=== PATIENT | female | born 1965 | race Caucasian/White ===

== ENCOUNTER 2019-07-27 09:28 | Day surgery (SDC) | payer BC ==
[~2019-07-27] VITALS: Ht 170.2 cm; Wt 124.7 kg
[~2019-07-27 09:28] MED LIST: ACETAMINOPHEN 1000MG 100ML IV BTL (OFIRMEV) (J0131 PER 10MG) As Ordered ONE; LIDOCAINE 2% INJ 100 MG/5 ML SDV (FOR ANES.) As Ordered ONE; LISI20TA20 PO; LR 1,000 ML IV ONE; ONDANSETRON 4MG/2ML VIAL (J2405) As Ordered ONE; PARO40TA2 PO; PROPOFOL 200 MG/20 ML VIAL As Ordered ONE; SIMV20TA22 PO; ceFAZolin SOD 2 GM in IV 1 EA IV ONE; dexameTHASONE 4 MG/ML 1ML VIAL (J1100) As Ordered ONE
[2019-07-27] MEDS ORDERED: BUPIVACAINE/EPIN 0.25% 30 ML VIAL As Ordered ONE (11:53)
[2019-07-27] MEDS ORDERED: MIDAZOLAM INJ 2 MG/2 ML VIAL (J2250) As Ordered ONE (12:28)
[2019-07-27] MEDS ORDERED: fentaNYL 100 MCG/2 ML INJECTION (J3010) As Ordered ONE (12:28)
[2019-07-27] MEDS ORDERED: PROPOFOL 500 MG/50 ML VIAL As Ordered ONE (13:00)
[2019-07-27] MEDS ORDERED: ROCURONIUM BROMIDE 50 MG/5 ML VIAL As Ordered ONE (13:25)
[2019-07-27] MEDS ORDERED: ALBUTEROL 6.7GM INHALER **FOR ANES. CART/OMNICELL ONLY As Ordered ONE (13:37)
[2019-07-27] MEDS ORDERED: fentaNYL 100 MCG/2 ML INJECTION (J3010) IV PRN (14:30)
[2019-07-27] MEDS ORDERED: LR 1,000 ML IV SCH (14:30)
[2019-07-27] MEDS ORDERED: ONDANSETRON 4MG/2ML VIAL (J2405) IV PRN (14:30)
[2019-07-27] MEDS ORDERED: METOCLOPRAMIDE INJ 10MG/2ML VIAL (J2765) IV PRN (14:30)
[2019-07-27] MEDS ORDERED: PERCOCET 5MG/325MG TAB PO PRN (14:30)
[2019-07-27] MEDS ORDERED: oxyCODONE 5MG TAB PO PRN ×2 (15:30)
[2019-07-27 16:45] VITALS: BP 147/84
--- NOTE | 2019-07-28 00:32 | RO ---
DATE OF PROCEDURE: 07/27/2019 PREPROCEDURE DIAGNOSIS: Left knee medial meniscal tear. POSTPROCEDURE DIAGNOSIS: Left knee medial meniscal tear. PROCEDURE: Left knee medial partial meniscectomy with extensive synovectomy. SURGEON: Gary Miller MD FILTER OPERATOR: None. ANESTHESIA: PREOPERATIVE ANTIBIOTICS: 2 grams of Ancef COMPLICATIONS: None. TOURNIQUET TIME: 20 minutes. INDICATIONS: A 64-year-old female who had been failing nonoperative treatment for her meniscal tear. We discussed how she also has concomitant osteoarthritis and that that will not improve with the procedure, but her mechanical symptoms from the meniscal tear will. Patient expressed understanding and agreement of the plan along with the risks of infection, damage to surrounding soft tissues, incomplete relief, and she wished to proceed. DESCRIPTION OF PROCEDURE: The patient was brought to the operating room in the supine position, underwent spinal anesthesia; unfortunately, had to be converted over to general anesthesia due to difficulty with respirations during the procedure. But then the left knee was prepped and draped in the usual fashion. We had a time-out to confirm site, side and surgery. Once all in agreement, we made two stab incisions for medial and lateral portal after we elevated the tourniquet to 250 mmHg. We started at the patellofemoral joint and demonstrated stage III changes were seen in trochlea along with medial and lateral patellar facets. We went down into the trochlea. Anterior cruciate ligament (ACL) and posterior cruciate ligament (PCL) were intact. Due to significant synovial tissue in the anteromedial and anterolateral aspects, we did debride significant amounts of synoviumof anteromedial and anterolateral compartmentsto improve visualization. We then examined the medial compartment and found the posteromedial radial meniscal tear. We used a combination of straight biters and negrito to debride this along with chondral flap of the distal femur and medial tibial plateau. Once we created stable edges to the cartilage along the meniscal tear, we turned attention to the lateral compartment. We were not able to identify any sort of meniscal tear, and the cartilaginous surfaces appeared to only have grade 2/3 changes that were intact. We then closed the portals with 3-0 nylon and placed dressing on. Patient was awakened and taken to pacu in stable condition POST OP PLAn ROM/WBAT pain control follow up in two week [facility]
== END 2019-07-27 17:15 | disposition home or self-care (01) ==
LOC: M SDC 09:28 → EDBD 11:45 → M SDC 17:15
PROVIDERS: ATTEND Orthopaedic Surgery Hand Surgery
DX: S83.242A Other tear of medial meniscus, current injury, left knee, initial encounter (principal); X58.XXXA Exposure to other specified factors, initial encounter; Y92.89 Other specified places as the place of occurrence of the external cause; Y93.9 Activity, unspecified; Y99.9 Unspecified external cause status; I10 Essential (primary) hypertension; E78.49 Other hyperlipidemia; Z79.899 Other long term (current) drug therapy; E66.9 Obesity, unspecified; F41.9 Anxiety disorder, unspecified; F17.218 Nicotine dependence, cigarettes, with other nicotine-induced disorders
CPT/HCPCS: 29881; J0131; J0690; J1100; J2250; J2405; J3010

== ENCOUNTER → 2023-09-16 | Outpatient (CLI) | payer BC, OTHER ==
[~2023-09-16] MED LIST changes: -ACETAMINOPHEN 1000MG 100ML IV BTL (OFIRMEV) (J0131 PER 10MG) As Ordered ONE; -LIDOCAINE 2% INJ 100 MG/5 ML SDV (FOR ANES.) As Ordered ONE; -LISI20TA20 PO; +LISI20TA37 PO; -LR 1,000 ML IV ONE; -ONDANSETRON 4MG/2ML VIAL (J2405) As Ordered ONE; -PROPOFOL 200 MG/20 ML VIAL As Ordered ONE; -ceFAZolin SOD 2 GM in IV 1 EA IV ONE; -dexameTHASONE 4 MG/ML 1ML VIAL (J1100) As Ordered ONE
== END ==
LOC: M PLAIMG 14:56
PROVIDERS: ATTEND Physician Assistant
DX: M25.571 Pain in right ankle and joints of right foot (principal)